=== PATIENT | male | born 1955 | race Caucasian/White ===

== ENCOUNTER 2021-07-28 14:39 | Emergency (ER) | payer MEDICARE ==
[~2021-07-28] VITALS: Ht 185.4 cm; Wt 102.1 kg
--- NOTE | 2021-07-28 14:39 | NUR ---
PT [id number] HOME, UNWITNESSED SYNCOPE, LAC TO L EYEBROW AND C/O NECK STIFFNESS. PT IS AAOX4, NOT IN RESPIRATORY DISTRESS, HOOKED TO [place], KEPT RESTED AND COMFORTABLE. WILL CONTINUE TO MONITOR.
--- NOTE | 2021-07-28 15:23 | NUR ---
PT SEEN AND EXAMINED BY
[2021-07-28] MEDS ORDERED: VALS160T29 PO (15:24)
[2021-07-28] MEDS ORDERED: MONT10TA22 PO (15:24)
[2021-07-28] MEDS ORDERED: TDAP [DIPH/PERTUSSIS/TET] 0.5 ML VIAL IM ONE ×2 (15:30→15:35)
[2021-07-28] MEDS ORDERED: ONDANSETRON HCL 4 MG/5 ML SOLUTION PO ONE (15:30)
[2021-07-28] MEDS ORDERED: IV NS 0.9% 1,000 ML BAG IV ONE (15:30)
[2021-07-28] MEDS ORDERED: ONDANSETRON 4 MG TAB.RAPDIS ONE (15:35)
[2021-07-28] MEDS ORDERED: ONDANSETRON HCL/PF 4 MG/2 ML VIAL ONE (15:36)
[2021-07-28] MEDS ORDERED: ONDANSETRON HCL/PF 4 MG/2 ML VIAL IV ONE (16:00)
[2021-07-28 16:08] LABS: BASOPHILS # (AUTO) 0.1 K/uL (0.0-0.2); BASOPHILS % (AUTO) 0.7 % (0.0-2.0); EOSINOPHILS % (AUTO) 1.8 % (0.0-6.0); HEMATOCRIT 47 % (39-51); HEMOGLOBIN 16.1 g/dL (13.5-17.5); LYMPHOCYTES # (AUTO) 1.2 K/uL (0.8-4.8); LYMPHOCYTES % (AUTO) 12.4 % (20.0-44.0); MEAN CORPUSCULAR HGB CONC 34 g/dl (31.0-36.0); MEAN CORPUSCULAR VOLUME 89 fL (80-96); MONOCYTES # (AUTO) 0.8 K/uL (0.1-1.30); NEUTROPHILS # (AUTO) 7.8 K/uL (1.8-8.9); NEUTROPHILS % (AUTO) 77.1 % (43.0-81.0); PLATELET COUNT (AUTO) 183 K/uL (150-450); RED BLOOD CELL COUNT(AUTO) 5.31 MIL/uL (4.5-6.0)
[2021-07-28] MEDS ORDERED: LIDOCAINE 1%-EPI 1:100,000 50 ML VIAL IJ ONE (16:30)
[2021-07-28 16:35] LABS: ALBUMIN 4.1 g/dL (3.4-5.0); BILIRUBIN,TOTAL 0.5 mg/dL (0.2-1.0); CALCIUM, SERUM 9.1 mg/dL (8.5-10.1); CREATININE 1.1 mg/dL (0.6-1.3); POTASSIUM 4.3 mmol/L (3.5-5.1); TOTAL PROTEIN, SERUM 7.5 g/dL (6.4-8.2)
[2021-07-28] MEDS ORDERED: KETOROLAC TROMETHAMINE INJ 30 MG/ML VIAL IV ONE (17:00)
[2021-07-28] MEDS ORDERED: KETOROLAC TROMETHAMINE INJ 30 MG/ML VIAL ONE (17:04)
[2021-07-28] MEDS ORDERED: HYDR-4209 PO ×2 (17:17→17:19)
--- NOTE | 2021-07-28 17:42 | NUR ---
SUTURING DONE BY THE PA.
--- NOTE | 2021-07-28 17:52 | NUR ---
IV removed. Catheter intact and site benign. Pressure and 4x4 applied to site. No bleeding noted.
--- NOTE | 2021-07-28 18:01 | NUR ---
CALLED LAB TO FOLLOW UP FOR TROPONIN RESULTS PER CLS 2 MINS MORE FOR THE RESULT.
[2021-07-28 18:12] VITALS: BP 135/71
--- NOTE | 2021-07-28 18:12 | NUR ---
Patient discharged to home in stable condition. Written and verbal after care instructions given. Patient verbalizes understanding of instruction.
== END 2021-07-28 18:13 | disposition home or self-care (01) ==
LOC: ER 15:06
DX: S12.490A Other displaced fracture of fifth cervical vertebra, initial encounter for closed fracture (principal); S01.112A Laceration without foreign body of left eyelid and periocular area, initial encounter; R55 Syncope and collapse; I10 Essential (primary) hypertension; Z79.899 Other long term (current) drug therapy; W18.39XA Other fall on same level, initial encounter; Y93.89 Activity, other specified; Y92.89 Other specified places as the place of occurrence of the external cause; Y99.8 Other external cause status
CPT/HCPCS: 12011; 36415; 70450; 71045; 72125; 80053; 84484; 85025; 90471; 90715; 93005; 96361; 96374; 96375; 99285; A6403; J1885; J2405; J3490; J7030; L0172; Q0162

== ENCOUNTER 2023-04-12 22:47 | Emergency (ER) | payer MEDICAID, MEDICARE ==
[~2023-04-12] VITALS: Ht 185.4 cm; Wt 99.8 kg
[~2023-04-12 22:47] MED LIST: HYDR-4209 PO; MONT10TA22 PO; VALS160T29 PO
[2023-04-12 23:35] VITALS: BP 141/93; TEMP 98.2; O2SAT 98
[2023-04-12] MEDS ORDERED: PRED50TA PO (23:46)
[2023-04-12] MEDS ORDERED: predniSONE 20 MG TABLET ONE (23:57)
[2023-04-13] MEDS ORDERED: predniSONE 50 MG TABLET PO ONE
== END 2023-04-12 23:54 | disposition home or self-care (01) ==
LOC: ER 22:52
DX: R21 Rash and other nonspecific skin eruption (principal); I10 Essential (primary) hypertension